=== PATIENT | male | born 1975 | race Caucasian/White ===

== ENCOUNTER 2024-03-08 10:30 | Emergency (ER) | payer BC, SELFPAY ==
[2024-03-08 10:36] VITALS: BP 124/78
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
[2024-03-08] MEDS: MOTRIN 600 MG PO (13:48)
[2024-03-08 13:57] VITALS: BP 116/79
== END 2024-03-08 14:00 | disposition home or self-care (01) ==
LOC: EMR 10:30
PROVIDERS: EMERGENCY PHYSICIAN Emergency Medicine; FAMILY PHYSICIAN Family Medicine
DX: S50.819A Abrasion of unspecified forearm, initial encounter (principal); S29.9XXA Unspecified injury of thorax, initial encounter; W19.XXXA Unspecified fall, initial encounter; Y93.55 Activity, bike riding; E78.00 Pure hypercholesterolemia, unspecified; M06.9 Rheumatoid arthritis, unspecified
CPT/HCPCS: 99284; 71101; 74176